=== PATIENT | male | born 1975 | race Caucasian/White ===

== ENCOUNTER → 2019-09-24 | Emergency (ER) | payer SELFPAY ==
[~2019-09-24] VITALS: Ht 177.8 cm; Wt 81.6 kg
[2019-09-24 15:43] VITALS: BP 142/78
[2019-09-24 18:23] LABS: Basophils # (auto) 0 10 ^3/uL (0-0.2); Basophils % (auto) 0.1 % (0.0-2.0); Eosinophils # (auto) 0.1 10 ^3/uL (0-0.8); Eosinophils % (auto) 0.7 % (0.0-7.0); Hematocrit 42.9 % (41.0-53.0); Hemoglobin 14.2 g/dL (13.5-17.5); Lymphocytes # (auto) 2.2 10 ^3/uL (0.4-5.4); Lymphocytes % (auto) 17.5 % (10.0-50.0); Mean Corpuscular Hemoglobin 30.7 pg (28.0-32.0); Mean Corpuscular Volume 93.2 fL (80.0-100.0); Monocytes # (auto) 1.4 10 ^3/uL (0-1.3); Monocytes % (auto) 11.4 % (0.0-12.0); Neutrophils # (auto) 8.7 10 ^3/uL (1.6-8.6); Neutrophils % (auto) 70.3 % (37.0-80.0); Platelet Count (auto) 240 10^3/uL (140-450); Red Blood Cells 4.61 10^6/uL (4.5-5.90); Red Cell Distribution Width 15.2 % (11.8-14.3); White Blood Cell 12.3 10^3/uL (4.4-10.8)
[2019-09-24 18:39] LABS: Calcium 9.1 mg/dL (8.5-10.1); Potassium 3.7 mmol/L (3.5-5.1)
[2019-09-24 18:45] LABS: Albumin 4.4 g/dL (3.4-5.0); BUN/Creatinine Ratio 18.2; Bilirubin, Total 1.3 mg/dL (0.2-1.0); Total Protein 7.8 g/dL (6.4-8.2)
[2019-09-24 19:25] LABS: Salicylate 3.7 mg/dL (2.8-20.0)
[2019-09-24 19:33] LABS: Acetaminophen < 2.0 ug/mL (10-30)
[2019-09-24 23:14] LABS: Basophils # (auto) 0 10 ^3/uL (0-0.2); Basophils % (auto) 0.5 % (0.0-2.0); Eosinophils # (auto) 0.1 10 ^3/uL (0-0.8); Eosinophils % (auto) 1.6 % (0.0-7.0); Hematocrit 41.1 % (41.0-53.0); Hemoglobin 13.8 g/dL (13.5-17.5); Lymphocytes # (auto) 2.1 10 ^3/uL (0.4-5.4); Lymphocytes % (auto) 22.2 % (10.0-50.0); Mean Corpuscular Hemoglobin 31.3 pg (28.0-32.0); Mean Corpuscular Hgb Conc. 33.5 g/dL (32.0-36.0); Mean Corpuscular Volume 93.3 fL (80.0-100.0); Monocytes % (auto) 10.7 % (0.0-12.0); Platelet Count (auto) 220 10^3/uL (140-450); Red Blood Cells 4.41 10^6/uL (4.5-5.90); Red Cell Distribution Width 15.4 % (11.8-14.3); White Blood Cell 9.3 10^3/uL (4.4-10.8)
[2019-09-24 23:38] LABS: Acetaminophen < 2.0 ug/mL (10-30); Albumin 4.1 g/dL (3.4-5.0); Anion Gap 6 (5-15); Blood Urea Nitrogen 19 mg/dL (7-18); Calcium 8.6 mg/dL (8.5-10.1); Carbon Dioxide 27 mmol/L (21-32); Chloride 105 mmol/L (98-107); Glucose 123 mg/dL (74-106); Potassium 3.3 mmol/L (3.5-5.1); Salicylate 3.5 mg/dL (2.8-20.0); Sodium 138 mmol/L (136-145)
[2019-09-24 23:41] LABS: Alanine Aminotransferase 46 U/L (16-61); Aspartate Aminotransferase 77 U/L (15-37); BUN/Creatinine Ratio 17.6; Blood Alcohol < 3.0 mg/dL (0-5); GFR African American 96 mL/min; GFR Non-African American 80 mL/min
[2019-09-24 23:44] LABS: Alkaline Phosphatase 61 U/L (45-117); Bilirubin, Total 0.8 mg/dL (0.2-1.0); Total Protein 7.4 g/dL (6.4-8.2)
== END | disposition home or self-care (01) ==
LOC: ER 15:38 → EDBD 15:38
DX: R45.851 Suicidal ideations (principal); E86.0 Dehydration; F41.9 Anxiety disorder, unspecified; F12.10 Cannabis abuse, uncomplicated
CPT/HCPCS: 36415; 80053; 80320; 80329; 85025

== ENCOUNTER 2019-09-28 02:22 | Inpatient (IN) | payer MEDICAID, OTHER ==
[~2019-09-28] VITALS: Ht 182.9 cm; Wt 89.5 kg
[2019-09-28] MEDS ORDERED: SODIUM CHLORIDE 0.9% 1,000 ML IV ONE (08:19)
[2019-09-28] MEDS ORDERED: SODIUM CHLORIDE 0.9% 500 ML IVB ONE (08:19)
[2019-09-28] MEDS ORDERED: KETOROLAC TROMETH 30 MG/ML 1ML VIAL IV ONE (08:30)
[2019-09-28] MEDS ORDERED: TAMSULOSIN HYDROCHLORIDE 0.4 MG CAP PO ONE (08:30)
[2019-09-28] MEDS ORDERED: METOCLOPRAMIDE HCL 5MG/ml INJ 2ml VIAL IV ONE (08:30)
[2019-09-28 09:14] LABS: Magnesium 2.3 mg/dL (1.6-2.6)
[2019-09-28 11:46] LABS: Urine Bacteria NONE SEEN /hpf (None Seen); Urine Blood 1+ /uL (Negative); Urine Mucus FEW (None Seen); Urine Specific Gravity 1.012 (1.001-1.035); Urine WBC 3 /hpf (0 - 3)
[2019-09-28 12:00] LABS: Basophils # (auto) 0 10 ^3/uL (0-0.2); Basophils % (auto) 0.4 % (0.0-2.0); Eosinophils # (auto) 0.1 10 ^3/uL (0-0.8); Eosinophils % (auto) 1.9 % (0.0-7.0); Hematocrit 36.9 % (41.0-53.0); Hemoglobin 12.2 g/dL (13.5-17.5); Lymphocytes # (auto) 1.9 10 ^3/uL (0.4-5.4); Lymphocytes % (auto) 37.3 % (10.0-50.0); Mean Corpuscular Hemoglobin 31.2 pg (28.0-32.0); Mean Corpuscular Hgb Conc. 33.1 g/dL (32.0-36.0); Mean Corpuscular Volume 94.4 fL (80.0-100.0); Monocytes # (auto) 0.6 10 ^3/uL (0-1.3); Monocytes % (auto) 12.2 % (0.0-12.0); Neutrophils # (auto) 2.5 10 ^3/uL (1.6-8.6); Neutrophils % (auto) 48.2 % (37.0-80.0); Nucleated Red Blood Cells % 0.1 %; Platelet Count (auto) 206 10^3/uL (140-450); Red Blood Cells 3.91 10^6/uL (4.5-5.90); Red Cell Distribution Width 15.1 % (11.8-14.3); White Blood Cell 5.2 10^3/uL (4.4-10.8)
[2019-09-28 12:17] LABS: Albumin 3.3 g/dL (3.4-5.0); Calcium 7.8 mg/dL (8.5-10.1); Potassium 3.5 mmol/L (3.5-5.1)
[2019-09-28 12:20] LABS: BUN/Creatinine Ratio 11.1; Bilirubin, Total 0.2 mg/dL (0.2-1.0); Total Protein 5.9 g/dL (6.4-8.2)
[2019-09-28] MEDS ORDERED: TEMAZEPAM 15 MG CAP PO PRN (12:45)
[2019-09-28] MEDS ORDERED: cefTRIAXone 1GM/50ML D5W 50 ML IV ONE (12:45)
[2019-09-28] MEDS: SODIUM CHLORIDE 0.9% 1,000 ML IV SCH ×2 (13:10→22:36)
--- NOTE | 2019-09-28 13:15 | NUR ---
CAME ON WC FROM ER, NOT IN DISTRESS, CLEAR LS IN BILATERAL UPPER AND LOWER LUNG LOBES, RR=18 SAT=98%, DEEP BREATHING AND COUGHING ENCOURAGED, VERBALIZED UNDERSTANDING, DENIED CHEST PAIN AND SOB AT THIS TIME, ABDOMEN SOFT WITH ACTIVE BS, LAST BM=09/27/19 REPORTED, KEEP NPO ORDERED, C/O RT AND LEFT FLANK PAIN L=08/23, MID AND RT. SIDE FOREHEAD ABRASION SCAR NOTED, DRY AND INTACT, GENERAL SKIN DRY, INTACT AND WARM TO TOUCH, RADIAL AND PEDAL PULSES PALPABLE, CAP REFILL <3 SECONDS, VS T=98.2 RR=18 SAT=98% P=76 IM=453/72, RESTING ON BED, HEAD OF BED ELEVATED, BED ON LOW POSITION, PENDING UROLOGY CONSULT, WILL CONTINUE MONITORING.
[2019-09-28] MEDS: PROMETHAZINE HCL 25 MG/ML 1ML IV PRN ×2 (14:32→20:59)
[2019-09-28] MEDS: MORPHINE SULF INJ 2 MG/ML SYRINGE 1ML IV PRN ×2 (14:32→20:59)
[2019-09-28] MEDS ORDERED: THIAMINE 100mg/ml INJ (200mg/2ml VIAL) IV ONE (15:15)
[2019-09-28] MEDS ORDERED: chlordiazePOXIDE HCL 25 MG CAP PO PRN (15:15)
[2019-09-28 17:00] VITALS: BP 124/71
[2019-09-28] MEDS: chlordiazePOXIDE HCL 5 MG CAP PO SCH (18:17)
[2019-09-28] MEDS: TAMSULOSIN HYDROCHLORIDE 0.4 MG CAP PO SCH (18:17)
[2019-09-28] MEDS: traMADol HCL 50 MG TAB PO PRN (18:18)
--- NOTE | 2019-09-28 19:33 | NUR ---
NOT IN DISTRESS, RESTING ON BED, REPORT WAS GIVEN TO THE [employer] RN.
[2019-09-28] MEDS: FAMOTIDINE 20 MG TAB PO SCH (20:59)
[2019-09-28] MEDS: ACETAMINOPHEN 500 MG TAB PO PRN (20:59)
[2019-09-28 22:00] VITALS: BP 114/64
[2019-09-29] MEDS: chlordiazePOXIDE HCL 5 MG CAP PO SCH ×4 (00:52→18:35)
[2019-09-29] MEDS: MORPHINE SULF INJ 2 MG/ML SYRINGE 1ML IV PRN ×5 (01:11→20:02)
--- NOTE | 2019-09-29 01:30 | NUR ---
PATIENT KEPT NPO AFTER MIDNIGHT FOR SURGICAL PROCEDURE FOR LITHOTRIPSY WITH DR GIBSON. CONSENTS SIGNED AND PLACED IN CHART. PATIENT HAS NO QUESTIONS AT THIS TIME.
[2019-09-29 05:03] VITALS: BP 127/65
[2019-09-29] MEDS: SODIUM CHLORIDE 0.9% 1,000 ML IV SCH ×2 (05:31→18:36)
[2019-09-29 09:00] VITALS: BP 105/73
[2019-09-29] MEDS: FAMOTIDINE 20 MG TAB PO SCH ×2 (10:13→20:02)
[2019-09-29] MEDS: cefTRIAXone 1GM/50ML D5W 50 ML IV SCH (10:13)
[2019-09-29] MEDS: THIAMINE 100mg/ml INJ (200mg/2ml VIAL) IV SCH (10:14)
[2019-09-29 10:18] LABS: INR 1.07 (0.9-1.15)
--- NOTE | 2019-09-29 11:11 | NUR ---
SPOKE WITH PATIENT REGARDING HIS NAME. PATIENT STATES THAT HE HAS LIED REGARDING WHAT HIS REAL NAME IS BECAUSE HE STATES HE THOUGHT THAT WE WOULD NOT TREAT HIM BECAUSE OF PAST INSTANCES THAT HAVE OCCURRED HERE WITH HIM. PATIENT HAS BEEN TELLING [facility] AND THE [facility] HIS NAME IS HALEY PICKENS BUT IN FACT HIS NAME IS BEAU MCFARLAND PER THE PATIENT.
--- NOTE | 2019-09-29 12:44 | NUR ---
DR. BOYCE AT BEDSIDE TO DISCUSS PLAN OF CARE
[2019-09-29 13:00] VITALS: BP 130/70
--- NOTE | 2019-09-29 15:05 | NUR ---
TOOK PATIENT DOWN TO PRE OP WITH [facility], HEMA LYONS AND CHON RN ARE ACCEPTING CARE.
[2019-09-29] MEDS ORDERED: ceFAZolin 1GM/50ML 50 ML IV ONE (15:38)
[2019-09-29] MEDS ORDERED: fentaNYL CITRATE 100 MCG/2 ML VL ONE (15:42)
[2019-09-29] MEDS ORDERED: SODIUM CHLORIDE LOCK 10 ML ONE (15:42)
[2019-09-29] MEDS ORDERED: ONDANSETRON HCL 4 MG/2 ML VIAL ONE (15:42)
[2019-09-29] MEDS ORDERED: MIDAZOLAM HCL 1MG/1ML-2 ML VIAL ONE (15:42)
[2019-09-29] MEDS ORDERED: PROPOFOL 10 MG/ML 20 ML IV ONE (15:42)
[2019-09-29] MEDS ORDERED: HYDROmorphone HCL 2 MG/ML VL IV PRN (15:45)
[2019-09-29] MEDS ORDERED: ONDANSETRON HCL 4 MG/2 ML VIAL IV PRN (15:45)
[2019-09-29] MEDS ORDERED: MORPHINE SULFATE 4 MG/ML SYR/VIAL IV PRN (15:45)
[2019-09-29] MEDS: TAMSULOSIN HYDROCHLORIDE 0.4 MG CAP PO SCH (18:35)
[2019-09-29] MEDS: ACETAMINOPHEN 500 MG TAB PO PRN (20:17)
[2019-09-29] MEDS: traMADol HCL 50 MG TAB PO PRN (20:17)
[2019-09-29 22:00] VITALS: BP 121/83
[2019-09-30] MEDS: MORPHINE SULF INJ 2 MG/ML SYRINGE 1ML IV PRN (00:16)
[2019-09-30] MEDS: chlordiazePOXIDE HCL 5 MG CAP PO SCH ×3 (00:33→12:00)
[2019-09-30 05:00] VITALS: BP 132/84
[2019-09-30] MEDS: SODIUM CHLORIDE 0.9% 1,000 ML IV SCH ×2 (06:35→08:11)
--- NOTE | 2019-09-30 08:18 | NUR ---
DR. BOYCE AT BEDSIDE TO DISCUSS PLAN OF CARE WITH PATIENT.
[2019-09-30] MEDS: cefTRIAXone 1GM/50ML D5W 50 ML IV SCH (08:29)
[2019-09-30] MEDS: traMADol HCL 50 MG TAB PO PRN (08:30)
[2019-09-30] MEDS: THIAMINE 100mg/ml INJ (200mg/2ml VIAL) IV SCH (08:30)
[2019-09-30] MEDS: FAMOTIDINE 20 MG TAB PO SCH (08:30)
[2019-09-30 09:00] VITALS: BP_SYST 102; BP_SYST 138; BP_DIAS 63; BP_DIAS 91
--- NOTE | 2019-09-30 10:33 | NUR ---
Called and left message with Rachel Duncan social services manager regarding patients social service consult for homelessness. Awaiting return call.
--- NOTE | 2019-09-30 11:12 | NUR ---
WOUND CARE NOTE: Wound care in to see patient per wound care request regarding multi skin integrity issue that are noted present on admission. Bedside nurse took photograph of patient's wounds upon admission for reference. Patient is 44 years old male with admitting diagnosis of Nephrolithiasis with Obstruction/hydronephrosis. Patient is resting in bed in Rm. 271B. Patient is awake, alert and oriented. He's ambulatory, self turning and repositioning. His Blu score is 23 . Patient noted with scabbed abrasion to anterior and Rt forehead, area is clean and dry, left open to air. Patient reported that scabbed abrasions are from scratching. His Rt buttock noted with 2.5x1.5cm open wound, no measurable depth. Wound is red with pink/light red negin wound, no drainage/odor noted. Wound appears to be an open blister. Patient reported that it is from a boil. Bedside nurse cleansed patient's Rt. buttock wound and covered with Opti foam dressing per MD order. Patient turned to his side to examine sacral and back, no other wound noted, no pressure injury noted. Patient tolerated examination well. No further wound care monitoring needed at this time. RECOMMENDATION: Nursing to continue with dressing change to Rt buttock per MD order, reconsult for active wound, pressure injury, Low Blu score 12 and below.
[2019-09-30 12:49] VITALS: BP 137/76
[2019-09-30 12:59] VITALS: BP 137/76
--- NOTE | 2019-09-30 13:00 | NUR ---
RECEIVED CALL FROM [employer] REGARDING PATIENTS SUPERINTENDENT CEMETERY CONSULT. SHE STATES THAT THE PATIENT IS NOT HOMELESS AND HE IS GOING TO HIS GIRLFRIEND GRANT[facility]S HOUSE UPON DISCHARGE.
--- NOTE | 2019-09-30 13:29 | NUR ---
Discharge instructions given as ordered. Encourage to follow up with [facility] as instructed. All questions and concerns addressed. Patient verbalized understanding. Medication reconciliation form completed and copy given to patient. IV removed with catheter intact, pressure dressing applied. Telemetry unit returned to ICU. Patient taken to front lobby via wheelchair with all personal belongings and accompanied by staff . Patient is now at [facility] in the lobby picking up prescriptions. No distress noted at time of departure.
--- NOTE | 2019-09-30 15:03 | NUR ---
Assessment Patient is a 44-year-old male who is alert and oriented. Prior to admission patient was living in a hotel and functioned independently. Per patient he can care for his own ADLs. Advised patient there is a social service consult for homeless and resource. Patient informed me he is not homeless. Per patient he will return home to his prior living arrangements post discharge and his friend Rosanna will transport him home. Informed patient he has the right to participate in all discharge planning. Patient verbalized understanding and agreed to discharge plan. Addendum: 09/30/19 at 1508 by VITA NAJERA Amended: Links added.
== END 2019-09-30 13:36 | disposition home or self-care (01) | DRG 463 ==
LOC: ER 02:22 → EDBD 02:22 → EDUNIT# 02:23 → OVERFLOW 02:23 → WEST WING 13:28
PROVIDERS: ADMIT Internal Medicine; ATTEND Family Medicine
PROC: 0TF6XZZ Fragmentation in Right Ureter, External Approach (ICD-10-PCS; principal; 2019-09-29 15:41)
DX: N13.6 Pyonephrosis (principal); D64.9 Anemia, unspecified; F20.9 Schizophrenia, unspecified; F31.9 Bipolar disorder, unspecified; F17.210 Nicotine dependence, cigarettes, uncomplicated; Z87.442 Personal history of urinary calculi; F10.20 Alcohol dependence, uncomplicated; Y90.0 Blood alcohol level of less than 20 mg/100 ml
CPT/HCPCS: 36415; 71045; 74176; 80053; 80320; 81001; 83690; 83735; 85025; 85610; 85730; 87081; 87086; 93005; 96361; 96374; 96375; G0378; J0690; J0696; J1885; J2250; J2405; J2704